=== PATIENT | male | born 1965 | race Two or more races ===

== ENCOUNTER 2023-11-22 15:07 | Emergency (ER) | payer MEDICAID ==
[2023-11-22 15:07] VITALS: BP 137/83; PULSE 88; RESP 18; O2SAT 97
[2023-11-22] MEDS ORDERED: IBUP-1456 PO (17:10)
[2023-11-22] MEDS ORDERED: CIPR-173 PO (17:10)
== END 2023-11-22 17:48 | disposition home or self-care (01) ==
LOC: ER 15:07
DX: H66.92 Otitis media, unspecified, left ear (principal); Z88.0 Allergy status to penicillin

== ENCOUNTER 2023-12-04 16:11 | Emergency (ER) | payer MEDICAID ==
[~2023-12-04] VITALS: Ht 175.3 cm; Wt 97.4 kg
[~2023-12-04 16:11] MED LIST: CIPR-173 PO; IBUP-1456 PO
[2023-12-04] MEDS ORDERED: ACE3T PO (18:36)
[2023-12-04] MEDS ORDERED: CEFD300C2 PO (18:36)
[2023-12-04] MEDS: KETOROLAC TROMETH 60MG/2ML VIAL IM ONE (18:44)
[2023-12-04] MEDS: cefTRIAXone SOD 1,000 MG VL IM ONE (18:44)
[2023-12-04 18:53] VITALS: BP 144/76; PULSE 92; RESP 20; TEMP 98.4; O2SAT 96
== END 2023-12-04 18:52 | disposition home or self-care (01) ==
LOC: ER 16:11
DX: H66.92 Otitis media, unspecified, left ear (principal); Z88.0 Allergy status to penicillin
CPT/HCPCS: 96372; 99284; J0696; J1885